=== PATIENT | female | born 1930 | race Asian ===

== ENCOUNTER 2018-12-18 08:20 | Emergency (ER) | payer MEDICARE, OTHER ==
[~2018-12-18] VITALS: Ht 160 cm; Wt 69.9 kg
[~2018-12-18 08:20] MED LIST: COZ50 PO; NORCO1 TA2 PO; TEN50 PO
[2018-12-18 08:24] VITALS: Ht 160 cm; Wt 69.9 kg
[2018-12-18 12:19] VITALS: BP 142/59
== END 2018-12-18 12:19 | disposition home or self-care (01) ==
LOC: ED 08:20
DX: S32.039A Unspecified fracture of third lumbar vertebra, initial encounter for closed fracture (principal); M47.896 Other spondylosis, lumbar region; I10 Essential (primary) hypertension; K21.9 Gastro-esophageal reflux disease without esophagitis; R42 Dizziness and giddiness; M81.0 Age-related osteoporosis without current pathological fracture; Z98.890 Other specified postprocedural states; W10.8XXA Fall (on) (from) other stairs and steps, initial encounter; Y93.89 Activity, other specified; Y92.89 Other specified places as the place of occurrence of the external cause; Y99.8 Other external cause status
CPT/HCPCS: J1100; J1885